=== PATIENT | female | born 1975 | race African-American/Black ===

== ENCOUNTER 2019-05-08 18:12 | Emergency (ER) | payer OTHER ==
[~2019-05-08] VITALS: Ht 172.7 cm; Wt 54.4 kg
[2019-05-08] MEDS ORDERED: REGLAN 5 MG TAB5 MG PO (21:40)
[2019-05-08 21:55] VITALS: BP 110/77
== END 2019-05-08 21:57 | disposition home or self-care (01) ==
LOC: ER 18:12
DX: G43.909 Migraine, unspecified, not intractable, without status migrainosus (principal); R11.2 Nausea with vomiting, unspecified